=== PATIENT | male | born 1975 ===

== ENCOUNTER 2017-09-04 13:41 | Emergency (ER) | payer SELFPAY ==
[2017-09-04 13:49] VITALS: O2SAT 96
--- NOTE | 2017-09-04 14:33 | C.PDOC ---
History Of Present Illness <MorenoAlysia Yael - Last Filed: 09/04/17 14:17> <Lonnie Ryan - Last Filed: 09/04/17 15:16> 41 y/o M c unknown PMHx p/w vision change of R eye since waking up this morning. 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 He went to [facility] Dr. Kaba and states a foreign object was removed by a drill like tool and was told it was a small rock. He states he went home and vision was normal. He notes that the eye has been mildly irritated but with no significant pain. This morning, he awoke, and states that his vision of the R eye was all white. Vision in L eye was normal. He washed his eye with an OTC eye wash, and it improved but remains blurry. He denies significant pain. He is taking antibiotic eye drops prescribed by the [facility] and has follow up with him in 2 days. Patient was found to be hypertensive at triage and states that he does not know if he is hypertensive and has no primary physician. He denies headache, chest pain, dyspnea, abdominal pain, back pain, hematuria, decrease in urination, numbness, weakness , or facial droop. (Lonnie Ryan) <MorenoAlysia Yael - Last Filed: 09/04/17 14:17> <Lonnie Ryan - Last Filed: 09/04/17 15:16> Chief Complaint (Nursing): Eye Problem Past Medical History - Social History Hx Alcohol Use: Yes Hx Substance Use: No - Immunization History Hx Tetanus Toxoid Vaccination: Yes (2014) Hx Influenza Vaccination: No Hx Pneumococcal Vaccination: No <MorenoAlysia Yael - Last Filed: 09/04/17 14:17> Family History: States: No Known Family Hx <Lonnie Ryan - Last Filed: 09/04/17 15:16> Vital Signs: Last Vital Signs Temp 99.6 F 09/04/17 14:22 Pulse 97 H 09/04/17 14:22 Resp 16 09/04/17 14:22 BP 210/152 H 09/04/17 14:22 Pulse Ox 96 09/04/17 14:42 Review Of Systems Except As Marked, All Systems Reviewed And Found Negative. Constitutional: Negative for: Fever Cardiovascular: Negative for: Chest Pain <Lonnie Ryan - Last Filed: 09/04/17 15:16> Physical Exam <Alysia Moreno - Last Filed: 09/04/17 14:17> <[facility] Last Filed: 09/04/17 15:16> - Physical Exam Additional Physical Exam Comments: Gen: NAD Head: NC/AT Eyes: PERRLA. EOMI. Visual moore full. Visual acuity 20/70 R 20/20 L. No hymphema. Mild redness of R sclera. L cornea clear, R cornea with hazy, whitish defects. Fluorescein stain reveals these 3 small defects in cornea have uptake. Negative Espinoza sign. Chest: Regular rate. Radial pulses 2+ bilaterally. Resp: No accessory muscle use. Neuro: Sensation to light touch intact bilaterally. No facial droop. Moves all extremities. ([facility]) ED Course And Treatment O2 Sat by Pulse Oximetry: 96 <Deidra Morenoin Yael - Last Filed: 09/04/17 14:17> Medical Decision Making <Deidra Morenoin Yael - Last Filed: 09/04/17 14:17> <[facility] - Last Filed: 09/04/17 15:16> Medical Decision Making: Patient has follow up with [facility] soon, is already on antibiotic drops. Had corneal foreign body and had manipulation of cornea to remove. Currently no evidence of infection, ulcer, perforation, hemorrhage, glaucoma. Will discharge home, keep appointment, instructed to return to ED for worsening vision or pain. Called Dr. Kaba office to inform of patient's visit today, closed today, machine gives "emergency number," which I called over 3 times, no warehouse picker and voicemail box not set up. ([facility]) Disposition <Demetri Morenotlin Yael - Last Filed: 09/04/17 14:17> - Disposition Disposition Time: 15:15 <[facility] - Last Filed: 09/04/17 15:16> - Disposition Referrals: Judson Kaba MD [Non-Staff] - Disposition: HOME/ ROUTINE Condition: STABLE Instructions: Corneal Abrasion (ED), Eye Foreign Body (ED) Forms: [employer] (Gambian) - Clinical Impression Clinical Impression: Corneal abrasion
[2017-09-04 14:38] VITALS: TEMP 99.6
[2017-09-04] MEDS ORDERED: Fluorescein 1 mg Ophthalmic Strip OD STA (14:52)
[2017-09-04] MEDS ORDERED: Tetracaine 0.5% Ophth 2 ML BOTTLE OD STA (14:52)
[2017-09-04] MEDS ORDERED: Tetracaine 0.5% Ophth (OR ONLY) ONE (14:53)
[2017-09-04] MEDS ORDERED: Fluorescein 1 mg Ophthalmic Strip ONE (14:53)
[2017-09-04 15:35] VITALS: BP 192/133; PULSE 94; RESP 15
--- NOTE | 2017-09-06 13:21 | CARD ---
APPROVED REPORT EKG Measurement Heart [id number] PA 152P18 [id number] <Conclusion> Normal sinus rhythm Left axis deviation Pulmonary disease pattern Minimal voltage criteria for LVH, may be normal variant Abnormal ECG
== END 2017-09-04 15:43 | disposition home or self-care (01) ==
LOC: C.ER 13:41
DX: S05.01XA Injury of conjunctiva and corneal abrasion without foreign body, right eye, initial encounter (principal); X58.XXXA Exposure to other specified factors, initial encounter

== ENCOUNTER 2018-05-29 22:41 | Emergency (ER) | payer SELFPAY ==
[2018-05-29] MEDS ORDERED: Sodium Chloride 0.9% 1,000 ML IV ONE (23:10)
--- NOTE | 2018-05-29 23:10 | C.PDOC ---
History Of Present Illness patient presents with fever, chills, abdominal pain and diarrhea. Some nausea, which has since resolved. Possible food related. Has had 5-7 loose , watery stools. No recent travel Time Seen by Provider: 05/29/18 23:10 Chief Complaint (Nursing): Abdominal Pain History Per: Patient History/Exam Limitations: no limitations Onset/Duration Of Symptoms: Hrs Current Symptoms Are (Timing): Still Present Context: Other Severity: Moderate Pain Scale Rating Of: 4 Location Of Pain/Discomfort: Diffuse Radiation Of Pain To:: None Quality Of Discomfort: Sharp, Cramping, Stabbing Associated Symptoms: Fever, Chills, Nausea, Vomiting, Diarrhea Exacerbating Factors: None Alleviating Factors: None Last Bowel Movement: Today Recent travel outside of the [place]: No Additional History Per: Patient Past Medical History Reviewed: Historical Data, Nursing Documentation, Vital Signs Vital Signs: Last Vital Signs Temp 99.3 F 05/30/18 02:40 Pulse 97 H 05/30/18 01:44 Resp 20 05/30/18 01:44 BP 149/102 H 05/30/18 01:44 Pulse Ox 95 05/30/18 01:44 Family History: States: No Known Family Hx - Social History Hx Alcohol Use: Yes Hx Substance Use: No - Immunization History Hx Tetanus Toxoid Vaccination: Yes (2014) Hx Influenza Vaccination: No Hx Pneumococcal Vaccination: No Review Of Systems Constitutional: Positive for: Fever, Chills Cardiovascular: Negative for: Chest Pain Respiratory: Negative for: Shortness of Breath Gastrointestinal: Positive for: Nausea, Vomiting, Abdominal Pain, Diarrhea Genitourinary: Negative for: Dysuria Musculoskeletal: Negative for: Back Pain Skin: Negative for: Rash Neurological: Negative for: Weakness Psych: Negative for: Anxiety Physical Exam - Physical Exam Appears: Non-toxic Skin: Warm, Dry Oral Mucosa: Moist Neck: Supple Chest: Symmetrical Cardiovascular: Rhythm Regular Respiratory: No Rales, No Rhonchi, No Wheezing Gastrointestinal/Abdominal: Soft, Tenderness (diffuse), No Distention, No Guarding, No Rebound Back: Normal Inspection Extremity: Normal ROM Extremity: Bilateral: Atraumatic Neurological/Psych: Oriented x3 Gait: Steady ED Course And Treatment - Laboratory Results Result Diagrams: 05/29/18 23:24 05/29/18 23:24 ECG: Interpreted By Me, Viewed By Me ECG Rhythm: Sinus Tachycardia (121), Nonspecific Changes O2 Sat by Pulse Oximetry: 98 Pulse Ox Interpretation: Normal Progress Note: was called that pt was having an allergic reaction in ct scan. Pt received solumedrol, pepcid and benadryl, however he did not have an allergic reaction Pt only had an episode of emesis. no urticarial rash, speaking in complete sentences. Reevaluation Time: 02:53 Reassessment Condition: Improved Disposition Counseled Patient/Family Regarding: Studies Performed, Diagnosis, Need For Followup, Rx Given - Disposition Referrals: [facility] [Outside] [facility] [Outside] Disposition: HOME/ ROUTINE Disposition Time: 23:10 Condition: FAIR Additional Instructions: Please return if symptoms recur Prescriptions: Ciprofloxacin [Cipro] 1 tab PO BID #14 tab Metronidazole [Flagyl] 500 mg PO TID #21 tablet Instructions: Acute Abdomen (Belly Pain), Adult (DC) Forms: [facility] (Romansh) Print Language: [place]ICAN CITIZEN - Clinical Impression Clinical Impression: Abdominal pain, Enterocolitis
[2018-05-29 23:28] LABS: BASO % 0.3 % (0.0-2.0); HEMOGLOBIN 15.4 g/dL (12.0-18.0); LYMPH # 0.7 K/uL (1.0-4.3); LYMPH % 6.2 % (20.0-40.0); MEAN CELL VOLUME 86.4 fL (80.0-94.0); MEAN CORPUSCULAR HEMOGLOBIN 30.2 pg (27.0-31.0); MEAN PLATELET VOLUME 8.6 fL (7.2-11.7); MONO # 0.5 K/uL (0.0-0.8); MONO % 4.6 % (0.0-10.0); NEUT # 9.5 K/uL (1.8-7.0); NEUT % 88.9 % (50.0-75.0); PLATELET COUNT 175 K/uL (130-400); RBC 5.11 Mil/uL (4.40-5.90); RED CELL DISTRIBUTION WIDTH 13.8 % (11.5-14.5); WHITE BLOOD COUNT 10.7 K/uL (4.8-10.8)
[2018-05-29] MEDS ORDERED: Sodium Chloride 0.9% 1,000 ML ONE (23:31)
[2018-05-29 23:37] LABS: PROTHROMBIN TIME 11.2 SECONDS (9.7-12.2)
[2018-05-29 23:40] LABS: ALB/GLOB RATIO 1.2 (1.0-2.1); ALBUMIN 4.3 g/dL (3.5-5.0); ALT/SGPT 34 U/L (21-72); AST/SGOT 29 U/L (17-59); BLOOD UREA NITROGEN 24 mg/dL (9-20); CALCIUM 9.3 mg/dl (8.6-10.4); GFR NON-AFRICAN AMERICAN > 60; LIPASE 37 U/L (23-300)
[2018-05-29 23:59] LABS: VENOUS BLOOD GAS BASE EXCESS 0.1 mmol/L (0.0-2.0); VENOUS BLOOD GAS PCO2 34 mmHg (40-60); VENOUS BLOOD GAS PO2 43 mm/Hg (30-55); VENOUS BLOOD PH 7.45 (7.32-7.43)
[2018-05-30 00:18] LABS: URINE BILIRUBIN NEGATIVE (NEGATIVE); URINE BLOOD 2+ (NEGATIVE); URINE CLARITY Clear (Clear); URINE COLOR Yellow (YELLOW); URINE GLUCOSE (UA) NORMAL (Normal); URINE LEUKOCYTE ESTERASE NEG Leu/uL (Negative); URINE PROTEIN NEGATIVE (NEGATIVE); URINE UROBILINOGEN NORMAL mg/dL (0.2-1.0)
[2018-05-30] MEDS ORDERED: DiphenhydrAMINE 50 mg/ml Inj ONE (00:40)
[2018-05-30 00:41] LABS: BANDS 7 % (0-2); LYMPHOCYTE 1 % (20-40); MONOCYTE 5 % (0-10); NEUTROPHIL 82 % (50-75); PLATELET ESTIMATE NORMAL (NORMAL); REACTIVE LYMPHOCYTES 5 % (0-0); TOTAL CELLS COUNTED 100
[2018-05-30] MEDS ORDERED: DiphenhydrAMINE 50 mg/ml Inj IVP STA (00:46)
[2018-05-30] MEDS ORDERED: MethylPREDNISolone 40 mg Vial IVP STA (00:46)
[2018-05-30 01:45] VITALS: PULSE 97; RESP 20
[2018-05-30] MEDS ORDERED: metroNIDAZOLE IV 500 mg/100 ml 500 MG/100 ML BAG IVPB SCH (02:30)
[2018-05-30] MEDS ORDERED: metroNIDAZOLE IV 500 mg/100 ml 500 MG/100 ML BAG IVPB STA (02:32)
[2018-05-30] MEDS ORDERED: metroNIDAZOLE IV 500 mg/100 ml 500 MG/100 ML BAG ONE (02:39)
[2018-05-30 02:40] VITALS: TEMP 99.3
[2018-05-30 02:56] VITALS: BP 143/101; O2SAT 95
--- NOTE | 2018-05-30 08:48 | CT ---
Date of service: 05/30/2018 PROCEDURE: CT Abdomen and Pelvis with intravenous contrast HISTORY: Abdominal pain, fever, diarrhea COMPARISON: None. TECHNIQUE: Axial images of the abdomen were obtained with intravenous contrast. Coronal and sagittal reformats were generated. Radiation dose: Total exam DLP = 1074 mGy-cm. This CT exam was performed using one or more of the following dose reduction techniques: Automated exposure control, adjustment of the mA and/or kV according to patient size, and/or use of iterative reconstruction technique. FINDINGS: LOWER THORAX: Hiatal hernia. LIVER: Fatty infiltration of the liver. GALLBLADDER AND BILE DUCTS: Unremarkable. PANCREAS: Mild fatty atrophy of the pancreas. SPLEEN: Unremarkable. Splenule. ADRENALS: Unremarkable. No mass. KIDNEYS AND URETERS: Unremarkable. No hydronephrosis. No solid mass. VASCULATURE: Unremarkable. No aortic aneurysm. BOWEL: Thick-walled fluid-filled colon and ileal loops noted compatible with diffuse enterocolitis. Infectious and inflammatory etiologies are considered. Consider follow-up with colonoscopy. APPENDIX: No findings to suggest acute appendicitis. Appendix measures up to 6.7 millimeters in width. Upper limits of normal. PERITONEUM: Unremarkable. No free fluid. No free air. LYMPH NODES: Unremarkable. No enlarged lymph nodes. BLADDER: Unremarkable. REPRODUCTIVE: Unremarkable. BONES: No acute fracture. Degenerative changes in the spine. OTHER FINDINGS: None. IMPRESSION: Thick-walled fluid-filled colon and ileal loops noted compatible with diffuse enterocolitis. Infectious and inflammatory etiologies are considered. Consider follow-up colonoscopy. Hiatal hernia. Fatty infiltration of the liver. Additional findings as above. These findings were preliminarily reported at 1:26 a.m. on 05/30/[address] Colby Moy from [facility]
--- NOTE | 2018-05-30 18:32 | CARD ---
APPROVED REPORT Date of service: 05/29/2018 EKG Measurement Heart [id number] TN 148P19 [id number] <Conclusion> Sinus tachycardia Left axis deviation Pulmonary disease pattern Nonspecific T wave abnormality Abnormal ECG
== END 2018-05-30 04:25 | disposition home or self-care (01) ==
LOC: C.ER 22:41
DX: K52.9 Noninfective gastroenteritis and colitis, unspecified (principal); R10.9 Unspecified abdominal pain
CPT/HCPCS: 74177; 80053; 81001; 82803; 83690; 85025; 85610; 85730; 93005; 96361; 96365; 96375; 99285; C9113; J1200; J2405; J2920; J7030